=== PATIENT | male | born 1975 | race African-American/Black ===

== ENCOUNTER 2021-09-25 07:04 | Day surgery (SDC) | payer OTHER ==
[~2021-09-25] VITALS: Ht 182.9 cm; Wt 88.9 kg
[2021-09-25] MEDS ORDERED: HYDROCO/APAP1 TA9 PO (07:57)
[2021-09-25] MEDS ORDERED: GABAPENTIN100 MG PO (07:58)
[2021-09-25] MEDS ORDERED: TRAMADOL HCL50 MG PO (07:58)
[2021-09-25] MEDS ORDERED: SLEEPING PILL PO (07:59)
[2021-09-25 10:44] VITALS: BP 137/89
== END 2021-09-25 09:43 | disposition home or self-care (01) ==
LOC: ORM 07:04
PROVIDERS: ATTEND Physical Medicine & Rehabilitation
DX: M79.18 Myalgia, other site (principal); G89.4 Chronic pain syndrome; M54.12 Radiculopathy, cervical region; M54.9 Dorsalgia, unspecified; Z20.822 Contact with and (suspected) exposure to COVID-19